=== PATIENT | female | born 1935 | race Caucasian/White ===

== ENCOUNTER 2016-11-11 17:39 | Inpatient (IN) | payer MEDICARE, BC ==
[~2016-11-11] VITALS: Ht 154.9 cm; Wt 53.1 kg
[2016-11-11] MEDS ORDERED: BISACODYL EC 5 MG TAB PO PRN (18:10)
[2016-11-11] MEDS ORDERED: BISACODYL 10 MG SUPP RECTAL PRN (18:10)
[2016-11-11] MEDS ORDERED: SALINE FLUSH 10 ML FLUSH PRN (18:10)
[2016-11-11] MEDS ORDERED: ALU/MAG/SIM 30 ML UDC PO PRN (18:10)
[2016-11-11] MEDS ORDERED: MAG HYDROX 30 ML UDC PO PRN (18:10)
[2016-11-11] MEDS: SALINE FLUSH 10 ML FLUSH SCH (20:00)
[2016-11-11 20:30] VITALS: BP_SYST 147; RESP 16; TEMP 97.9
[2016-11-11 20:38] VITALS: Ht 154.9 cm; Wt 53.1 kg
[2016-11-11] MEDS ORDERED: PANTOPRAZOLE 80 MG in SODIUM CHLORIDE 0.9% 100 ML IV ONE (21:50)
[2016-11-11] MEDS: SODIUM CHLORIDE 0.9% 1,000 ML IV SCH (23:00)
[2016-11-11 23:30] VITALS: BP_SYST 137; RESP 16; TEMP 98.1
[2016-11-11] MEDS: PANTOPRAZOLE 80 MG in SODIUM CHLORIDE 0.9% 250 ML IV SCH (23:43)
[2016-11-12] VITALS (36 sets, daily range): BP systolic 70–160; RESP 9–23; TEMP 95.7–99.2
[2016-11-12] MEDS ORDERED: NITROGLYCERIN SL 0.4 MG TAB SL ONE (00:15)
[2016-11-12] MEDS ORDERED: NALOXONE 0.4 MG/ML AMP ONE (00:15)
[2016-11-12] MEDS ORDERED: MORPHINE 2 MG/ML SYR IV PRN (00:25)
[2016-11-12] MEDS: NITROGLYCERIN SL 0.4 MG TAB SL PRN ×7 (00:46→15:18)
[2016-11-12] MEDS ORDERED: SODIUM CHLORIDE 0.9% FLUSH BAG 500 ML IV SCH (06:00)
[2016-11-12] MEDS: DILAUDID 1 MG/ML AMP IV PRN ×2 (07:56→10:16)
[2016-11-12] MEDS: SALINE FLUSH 10 ML FLUSH SCH ×2 (08:28→20:27)
[2016-11-12] MEDS: SODIUM CHLORIDE 0.9% 1,000 ML IV SCH (09:39)
[2016-11-12] MEDS: PANTOPRAZOLE 80 MG in SODIUM CHLORIDE 0.9% 250 ML IV SCH ×2 (11:15→17:50)
[2016-11-12] MEDS ORDERED: ALU/MAG/SIM 30 ML UDC PO PRN (13:10)
[2016-11-12] MEDS: LORAZEPAM 2 MG/ML VIAL IV PRN ×2 (13:23→17:36)
[2016-11-12] MEDS ORDERED: METOPROLOL 5 MG/5 ML VIAL IV ONE (18:05)
[2016-11-12] MEDS ORDERED: DILTIAZEM 125 MG in DEXTROSE 125 ML IV ONE (18:05)
[2016-11-12] MEDS ORDERED: CARDIZEM 1 MG/ML DRIP 125 ML IV SCH (18:05)
[2016-11-12] MEDS ORDERED: SUCCINYLCHOLINE 20 MG/ML VL ONE (18:46)
[2016-11-12] MEDS ORDERED: PROPOFOL IV ONE (19:08)
[2016-11-12] MEDS ORDERED: NOREPINEPHRINE 1 MG/ML 4 ML VIAL IV ONE (19:24)
[2016-11-12] MEDS ORDERED: SOD BICARB 8.4% SYR 50 ML ONE (20:13)
[2016-11-12] MEDS ORDERED: SOD BICARB 8.4% SYR 50 ML IV ONE ×2 (20:25)
[2016-11-12] MEDS ORDERED: PROPOFOL 100 ML 100 ML IV ONE (22:28)
== END 2016-11-12 22:31 | disposition short-term general hospital (02) | DRG 378 ==
LOC: ENRESERVDT → ENRESERVTM → 4THE 20:34 → CCU 11-12 18:41
PROVIDERS: ADMIT Internal Medicine; ATTEND Internal Medicine
CPT/HCPCS: 36600; 71010; 93005; 94002; 94799; 99232